=== PATIENT | female | born 1945 | race Caucasian/White ===

== ENCOUNTER 2016-11-11 10:20 | Emergency (ER) | payer MEDICARE, OTHER ==
[2016-11-11] MEDS ORDERED: ALBUTEROL NEB 2.5 MG/3 ML INH STA (10:50)
[2016-11-11] MEDS ORDERED: ALBUTEROL NEB 2.5 MG/3 ML INH ONE (11:11)
== END 2016-11-11 12:59 | disposition home or self-care (01) ==
DX: J40 Bronchitis, not specified as acute or chronic (principal); I10 Essential (primary) hypertension
CPT/HCPCS: 71020; 94640; 99283; J7613

== ENCOUNTER 2017-01-26 20:51 | Outpatient (CLI) | payer MEDICARE, OTHER | END 2017-01-26 20:52 | disposition critical access hospital (66) | DX: R06.02 Shortness of breath (principal); R06.2 Wheezing | CPT/HCPCS: A0425; A0427 ==

== ENCOUNTER 2017-01-26 21:14 | Inpatient (IN) | payer MEDICARE, OTHER ==
[2017-01-26] MEDS ORDERED: SODIUM CHLORIDE 0.9% 1,000 ML IV ONE (21:25)
[2017-01-26] MEDS ORDERED: ALBUTEROL NEB 2.5 MG/3 ML INH STA (21:27)
[2017-01-26] MEDS ORDERED: ALBUTEROL NEB 2.5 MG/3 ML INH ONE (21:31)
[2017-01-26] MEDS ORDERED: ASPIRIN CHEW 81 MG TABLET PO STA (23:00)
[2017-01-26] MEDS ORDERED: ASPIRIN CHEW 81 MG TABLET ONE (23:04)
[2017-01-26] MEDS ORDERED: HYDROcod/ACETAM 5/325 MG TABLET PO PRN (23:29)
[2017-01-26] MEDS ORDERED: SODIUM CHLORIDE FLUSH 0.9% 10 ML SYRINGE IVP PRN (23:29)
[2017-01-26] MEDS ORDERED: ONDANSETRON ODT 4 MG TABLET TL PRN (23:29)
[2017-01-26] MEDS ORDERED: ONDANSETRON 4 MG/2 ML VIAL IVP PRN (23:29)
[2017-01-27] MEDS: ACETAMINOPHEN 325 MG TABLET PO PRN ×2 (04:06→10:32)
[2017-01-27] MEDS ORDERED: SODIUM CHLORIDE FLUSH 0.9% 10 ML SYRINGE IVP SCH (06:00)
[2017-01-27] MEDS ORDERED: POTASSIUM CHLORIDE 20 MEQ TABLET PO SCH (08:00)
[2017-01-27] MEDS ORDERED: POLYETHYLENE GLYCOL 3350 17 GM PACKET PO SCH (09:00)
[2017-01-27] MEDS ORDERED: ENOXAPARIN 80 MG/0.8 ML SYRINGE SUBQ SCH (09:00)
[2017-01-27] MEDS ORDERED: SPIRONOLACTONE 25 MG TABLET PO SCH ×2 (09:00→11:00)
[2017-01-27] MEDS ORDERED: PARoxetine 10 MG TABLET PO SCH (09:00)
[2017-01-27] MEDS ORDERED: METOPROLOL TARTRATE 50 MG TABLET PO SCH ×2 (09:00→11:00)
[2017-01-27] MEDS ORDERED: ENOXAPARIN 100 MG/ML SYRINGE SUBQ SCH ×2 (10:00→11:00)
[2017-01-27] MEDS ORDERED: ASPIRIN CHEW 81 MG TABLET PO SCH (12:00)
[2017-01-27] MEDS ORDERED: NITROGLYCERIN SL 0.4 MG TABLET SL PRN (13:48)
== END 2017-01-27 15:10 | disposition short-term general hospital (02) | DRG 282 ==
DX: I21.4 Non-ST elevation (NSTEMI) myocardial infarction (principal); R07.9 Chest pain, unspecified; R06.02 Shortness of breath; I10 Essential (primary) hypertension; Z90.49 Acquired absence of other specified parts of digestive tract; R06.00 Dyspnea, unspecified; I12.9 Hypertensive chronic kidney disease with stage 1 through stage 4 chronic kidney disease, or unspecified chronic kidney disease; N18.3 Chronic kidney disease, stage 3 (moderate); Z96.653 Presence of artificial knee joint, bilateral; Z82.49 Family history of ischemic heart disease and other diseases of the circulatory system; E66.9 Obesity, unspecified; Z68.36 Body mass index [BMI] 36.0-36.9, adult; F32.9 Major depressive disorder, single episode, unspecified

== ENCOUNTER 2017-01-27 15:11 | Outpatient (CLI) | payer MEDICARE, OTHER | END 2017-01-27 15:12 | disposition short-term general hospital (02) | DX: I24.9 Acute ischemic heart disease, unspecified (principal) | CPT/HCPCS: A0425; A0426 ==

== ENCOUNTER 2017-08-22 08:32 | Outpatient (CLI) | payer MEDICARE, OTHER ==
[2017-08-22 17:53] LABS: EOSINOPHILS % (AUTO) 1.9 %; HCT - HEMATOCRIT 43.7 % (37.0-47.0); HGB - HEMOGLOBIN 14.6 g/dL (12.0-16.0); MEAN CORPUSCULAR HEMOGLOBIN 32.8 pg (27.0-31.0); MEAN CORPUSCULAR HGB CONC 33.3 g/dL (32.0-36.0); MEAN CORPUSCULAR VOLUME 98.2 fL (81.0-99.0); MEAN PLATELET VOLUME 7.4 fL (7.9-10.8); MONOCYTES % (AUTO) 6.9 %; NEUTROPHILS % (AUTO) 47.2 %; RED BLOOD COUNT 4.45 10^6/uL (4.20-5.40); RED CELL DISTRIBUTION WIDTH 14.1 % (12.0-15.0); UNCORRECTED WHITE BLOOD COUNT 5.9 x10^3/uL; WHITE BLOOD COUNT 5.9 x10^3/uL (4.8-10.8)
[2017-08-22 17:54] LABS: BILIRUBIN,URINE NEGATIVE (NEGATIVE)
[2017-08-22 18:01] LABS: BAND NEUTROPHILS % (MANUAL) 0 %
[2017-08-22 18:17] LABS: UR CULTURE IF IND INDICATED
[2017-08-22 18:19] LABS: ALBUMIN/GLOBULIN RATIO 1.1 (1.0-2.2); BILIRUBIN,TOTAL 0.8 mg/dL (0.2-1.0); BUN - BLOOD UREA NITROGEN 19 mg/dL (6-20); CALCIUM 8.6 mg/dL (8.5-10.3); CARBON DIOXIDE - CO2 20 mmol/L (21-32); CHLORIDE 110 mmol/L (101-111); CHOLESTEROL 187 mg/dL; CREATININE 1.1 mg/dL (0.4-1.0); GFR - MDRD 49 (>89); GLUCOSE 88 mg/dL (70-100); HDL CHOLESTEROL 47 mg/dL; LDL/HDL RATIO 2.4 (<4.4); POTASSIUM 4.1 mmol/L (3.5-5.0); SODIUM 136 mmol/L (135-145); TRIGLYCERIDES 123 mg/dL; VLDL CHOLESTEROL 25 mg/dL
[2017-08-22 18:27] LABS: EOSINOPHILS % (MANUAL) 2 %; LYMPHOCYTES % (MANUAL) 38 %; NEUTROPHILS % (MANUAL) 49 %; NP AUTO DIFFERENTIAL? YES; NP MAN DIFFERENTIAL? NO; PLATELET ESTIMATE, MANUAL NORMAL (130-450,000) (NORMAL); PLATELET MORPHOLOGY NORMAL APPEARANCE (NORMAL); TOTAL CELLS COUNTED 100
== END 2017-08-22 08:33 | disposition home or self-care (01) ==
LOC: LAB.F 08:32
PROVIDERS: ATTEND Internal Medicine
DX: I10 Essential (primary) hypertension (principal)
CPT/HCPCS: 36415; 80053; 80061; 81001; 84443; 85025; 87086

== ENCOUNTER 2019-07-21 12:53 | Emergency (ER) | payer MEDICARE, OTHER ==
[2019-07-21] MEDS ORDERED: BENZONATATE 100 MG CAPSULE PO STA (13:12)
[2019-07-21] MEDS ORDERED: predniSONE 20 MG TABLET PO STA (13:12)
[2019-07-21] MEDS ORDERED: IPRATROPIUM/ALBUTEROL 3 ML NEB INH STA (13:12)
[2019-07-21] MEDS ORDERED: DOXYCYCLINE 100 MG TABLET PO STA (13:12)
--- NOTE | 2019-07-21 13:15 | ED Physician Documentation ---
PD HPI URI - Stated complaint Stated Complaint: COLD - Chief complaint Chief Complaint: Resp - History obtained from History obtained from: Patient - History of Present Illness Timing - onset: Other (73-year-old woman with persistent asthma presents with a week's worth of cough productive of yellow sputum, slight increase in shortness of breath. No runny nose or sore throat. No fevers or chills. She is been coughing a lot and needs something for that.) Review of Systems Constitutional: denies: Fever, Chills Ears: denies: Ear pain Nose: denies: Rhinorrhea / runny nose, Congestion, Sinus pressure / pain Throat: denies: Sore throat Cardiac: denies: Chest pain / pressure PD PAST MEDICAL HISTORY - Past Medical History Cardiovascular: Hypertension Respiratory: None : None HEENT: None Psych: Depression Musculoskeletal: Osteoarthritis Derm: None - Past Surgical History Past Surgical History: Yes General: Cholecystectomy, Appendectomy, Bowel surgery Ortho: Knee replacement, Rotator cuff repair, Other HEENT: Tonsil/Adenoidectomy - Present Medications Home Medications: Ambulatory Orders Medication Instructions Recorded Confirmed PARoxetine [Paxil] 10 mg PO DAILY 11/11/16 01/26/17 Spironolactone 50 mg PO DAILY 11/11/16 01/27/17 Metoprolol Succinate [Toprol Xl] 50 mg PO DAILY 01/27/17 01/27/17 Benzonatate [Tessalon Perle] 100 - 200 mg PO TID PRN #30 capsule 07/21/19 Doxycycline Hyclate 100 mg PO BID #14 capsule 07/21/19 predniSONE [Deltasone] 60 mg PO DAILY 5 Days #15 tablet 07/21/19 - Allergies Allergies/Adverse Reactions: Allergies Allergy/AdvReac Type Severity Reaction Status Date / Time No Known Drug Allergies Allergy Verified 07/21/19 12:58 - Social History Does the pt smoke?: No Smoking Status: Never smoker Does the pt drink ETOH?: No Does the pt have substance abuse?: No - Immunizations Immunizations are current?: Yes PD ED PE NORMAL - Vitals Vital signs reviewed: Yes - General General: Alert and oriented X 3, No acute distress - HEENT HEENT: Ears normal, Pharynx benign - Neck Neck: Supple, no meningeal sign, No bony TTP - Cardiac Cardiac: RRR, No murmur - Respiratory Respiratory: Other (Nonlabored breathing, speaking in full sentences, rhonchorous and wheezy throughout with good air movement.) - Abdomen Abdomen: Non tender - Extremities Extremities: No edema, No calf tenderness / cord - Neuro Neuro: Alert and oriented X 3, Normal speech Results - Vitals Vitals: Vital Signs - 24 hr 07/21/19 12:56 Temperature 36.1 C L Heart Rate 64 Respiratory 20 Rate Blood Pressure 128/82 H O2 Saturation 96 Oxygen O2 Source Room air PD MEDICAL DECISION MAKING - ED course ED course: A 73-year-old woman who presents with an exacerbation of her asthma due to bronchitis and she was treated with steroids and antibiotics and Tessalon. Departure - Departure Disposition: 01 Home, Self Care Clinical Impression: Bronchitis Asthma Qualifiers: Asthma severity: moderate Asthma persistence: persistent Asthma complication type: with acute exacerbation Qualified Code(s): J45.41 - Moderate persistent asthma with (acute) exacerbation Condition: Good Record reviewed to determine appropriate education?: Yes Instructions: ED Bronchitis Asthmatic Prescriptions: Benzonatate [Tessalon Perle] 100 - 200 mg PO TID PRN #30 capsule PRN Reason: Cough Doxycycline Hyclate 100 mg PO BID #14 capsule predniSONE [Deltasone] 60 mg PO DAILY 5 Days #15 tablet Comments: Call your doctor to arrange a follow-up appointment, make the next available appointment. In the interim, return anytime if worse or if new symptoms develop.
[2019-07-21 13:55] VITALS: BP 118/75
== END 2019-07-21 13:58 | disposition home or self-care (01) ==
LOC: ED 12:53
DX: J45.41 Moderate persistent asthma with (acute) exacerbation (principal); I10 Essential (primary) hypertension
CPT/HCPCS: 94640; 99283; A9270; J7512

== ENCOUNTER 2021-11-13 08:00 | Outpatient (CLI) | payer MEDICARE, OTHER ==
--- NOTE | 2021-11-13 17:49 | XRAY Report ---
PROCEDURE: Chest 2 View X-Ray INDICATIONS: Cough TECHNIQUE: 2 view(s) of the chest. COMPARISON: 01/26/2017 FINDINGS: Surgical changes and devices: None. Lungs and pleura: No pleural effusions or pneumothorax. Lungs are clear. Mediastinum: Mediastinal contours are normal. Heart size is normal. Small hiatal hernia. Bones and chest wall: No suspicious bony abnormalities. Soft tissues appear unremarkable. IMPRESSION: No acute cardiopulmonary process demonstrated radiographically. Reviewed by: Jalen Scott MD on 11/13/2021 4:48 PM [facility] Approved by: Jalen Scott MD on 11/13/2021 4:48 PM [facility] Station ID: [id number]
== END 2021-11-13 23:59 ==
LOC: DI.S 08:00
PROVIDERS: ATTEND Physician Assistant
DX: R05.9 Cough, unspecified (principal); R79.81 Abnormal blood-gas level; U07.1 COVID-19
CPT/HCPCS: 71046; U0004

== ENCOUNTER 2022-04-19 13:53 | Outpatient (CLI) | payer MEDICARE, OTHER ==
[2022-04-19 20:25] LABS: BASOPHILS # (AUTO) 0.1 10^3/uL (0.0-0.1); BASOPHILS % (AUTO) 0.9 %; EOSINOPHILS % (AUTO) 0.7 %; HCT - HEMATOCRIT 38.3 % (37.0-47.0); HGB - HEMOGLOBIN 12.1 g/dL (12.0-16.0); LYMPHOCYTES # (AUTO) 1.4 10^3/uL (1.5-3.5); LYMPHOCYTES % (AUTO) 25.3 %; MEAN CORPUSCULAR HEMOGLOBIN 31.8 pg (27.0-31.0); MEAN CORPUSCULAR HGB CONC 31.6 g/dL (32.0-36.0); MEAN CORPUSCULAR VOLUME 100.5 fL (81.0-99.0); MEAN PLATELET VOLUME 9.3 fL (7.9-10.8); MONOCYTES # (AUTO) 0.4 10^3/uL (0.0-1.0); MONOCYTES % (AUTO) 7.5 %; NEUTROPHILS # (AUTO) 3.6 10^3/uL (1.5-6.6); NEUTROPHILS % (AUTO) 65.4 %; PLT - PLATELET COUNT 191 10^3/uL (130-450); RED BLOOD COUNT 3.81 10^6/uL (4.20-5.40); RED CELL DISTRIBUTION WIDTH 13.3 % (12.0-15.0); WHITE BLOOD COUNT 5.5 x10^3/uL (4.8-10.8)
[2022-04-19 20:54] LABS: ALBUMIN 3.5 g/dL (3.2-5.5); ALBUMIN/GLOBULIN RATIO 1.3 (1.0-2.2); BILIRUBIN,TOTAL 0.6 mg/dL (0.2-1.0); CALCIUM 8.5 mg/dL (8.5-10.3); PHOSPHORUS 3.9 mg/dL (2.5-4.6); TOTAL PROTEIN 6.1 g/dL (6.7-8.2); URIC ACID 5.4 mg/dL (2.6-7.2)
[2022-04-19 21:24] LABS: CHLORIDE,URINE RANDOM 85 mmol/L; CREATININE,URINE 31.9 mg/dL; POTASSIUM,URINE 12.6 mmol/L
[2022-04-19 21:29] LABS: TOTAL PROTEIN,URINE TIMED < 6 mg/dL
== END 2022-04-19 13:54 | disposition home or self-care (01) ==
LOC: LAB.S 13:53
PROVIDERS: ATTEND Internal Medicine Nephrology
DX: M05.79 Rheumatoid arthritis with rheumatoid factor of multiple sites without organ or systems involvement (principal); I12.9 Hypertensive chronic kidney disease with stage 1 through stage 4 chronic kidney disease, or unspecified chronic kidney disease; N18.30 Chronic kidney disease, stage 3 unspecified; E87.2 Acidosis; Z79.899 Other long term (current) drug therapy
CPT/HCPCS: 36415; 80053; 82436; 82570; 84100; 84133; 84156; 84300; 84550; 85025; 85651; 86140

== ENCOUNTER 2023-01-25 16:38 | Emergency (ER) | payer MEDICARE, OTHER ==
[2023-01-25 17:30] LABS: GLUCOSE, URINE (UA) NEGATIVE (NEGATIVE); KETONES,URINE (UA) TRACE mg/dL (NEGATIVE); LEUKOCYTE ESTERASE, URINE SMALL (NEGATIVE); NITRITE,URINE POSITIVE (NEGATIVE); OCCULT BLOOD,URINE LARGE (NEGATIVE); PH,URINE 6.5 PH (5.0-7.5); PROTEIN,URINE >=300 mg/dL (NEGATIVE); UROBILINOGEN,URINE 1 (NORMAL) E.U./dL (NORMAL)
[2023-01-25 17:34] LABS: BILIRUBIN,URINE COLOR INTERFERENCE (NEGATIVE); CLARITY,URINE TURBID (CLEAR)
[2023-01-25 17:35] LABS: BACTERIA,URINE Moderate /HPF (None Seen); RBC,URINE TNTC /HPF (0-5); SQUAMOUS EPITHELIAL CELL,UR RARE Squamous (<= Few)
[2023-01-25] MEDS ORDERED: levoFLOXacin 250 MG TABLET PO STA (17:51)
--- NOTE | 2023-01-25 17:53 | ED Physician Documentation ---
History of Present Illness - Stated complaint Stated Complaint: FEMALE - Chief complaint Chief Complaint: General - History obtained from History obtained from: Patient - Additonal information Additional information: 77-year-old woman with history of asthma, chronic kidney disease and rheumatism presents with a few weeks worth of intermittent hematuria worse over the last couple of days. No associated suprapubic pain, dysuria or fevers. PD PAST MEDICAL HISTORY - Past Medical History Cardiovascular: Hypertension Respiratory: None : None HEENT: None Psych: Depression Musculoskeletal: Osteoarthritis Derm: None - Past Surgical History Past Surgical History: Yes General: Cholecystectomy, Appendectomy, Bowel surgery Ortho: Knee replacement, Rotator cuff repair, Other HEENT: Tonsil/Adenoidectomy - Present Medications Home Medications: Ambulatory Orders Medication Instructions Recorded Confirmed PARoxetine [Paxil] 10 mg PO DAILY 11/11/16 01/26/17 Spironolactone 50 mg PO DAILY 11/11/16 01/27/17 Metoprolol Succinate [Toprol Xl] 50 mg PO DAILY 01/27/17 01/27/17 Benzonatate [Tessalon Perle] 100 - 200 mg PO TID PRN #30 capsule 07/21/19 Doxycycline Hyclate 100 mg PO BID #14 capsule 07/21/19 predniSONE [Deltasone] 60 mg PO DAILY 5 Days #15 tablet 07/21/19 levoFLOXacin [Levaquin] 250 mg PO DAILY #4 tablet 01/25/23 - Allergies Allergies/Adverse Reactions: Allergies Allergy/AdvReac Type Severity Reaction Status Date / Time capsaicin Allergy Unknown Verified 01/25/23 16:57 [From Salonpas (capsaicin-menthol)] menthol Allergy Unknown Verified 01/25/23 16:57 [From Salonpas (capsaicin-menthol)] - Social History Does the pt smoke?: No Smoking Status: Never smoker Does the pt drink ETOH?: No Does the pt have substance abuse?: No - Immunizations Immunizations are current?: Yes PD ED PE NORMAL - Vitals Vital signs reviewed: Yes - General General: Alert and oriented X 3, No acute distress - Abdomen Abdomen: Normal bowel sounds, Soft, Non tender - Back Back: No CVA TTP - Neuro Neuro: Alert and oriented X 3, Normal speech Results - Vitals Vitals: Vital Signs - 24 hr 01/25/23 16:49 Temperature 36.6 C Heart Rate 88 Respiratory 22 Rate Blood Pressure 159/97 H O2 Saturation 94 Oxygen O2 Source Room air - Labs Labs: Laboratory Tests 01/25/23 17:08 Urine Color RED/BLOODY Urine Clarity TURBID Urine pH 6.5 Ur Specific [place] 1.025 Urine Protein >=300 H Urine Glucose (UA) NEGATIVE Urine Ketones TRACE Urine Occult Blood LARGE H Urine Nitrite POSITIVE H Urine Bilirubin COLOR INTERFERENCE Urine Urobilinogen 1 (NORMAL) Ur Leukocyte Esterase SMALL H Urine RBC TNTC H Urine WBC 6-10 H Ur Squamous Epith Cells RARE Squamous Urine Bacteria Moderate H Ur Microscopic Review INDICATED Urine Culture Comments INDICATED PD Medical Decision Making - ED course ED course: 77-year-old woman presents with hematuria, the urine looks like a cystitis. I offered CT scanning and labs which she declined, but in lieu of that she understands the need for repeat urinalysis after an appropriate time on antibiotics to ensure clearance of the hematuria to rule out other etiologies. Departure - Departure Disposition: 01 Home, Self Care Clinical Impression: Cystitis Condition: Good Record reviewed to determine appropriate education?: Yes Instructions: ED UTI Cystitis Female Prescriptions: levoFLOXacin [Levaquin] 250 mg PO DAILY #4 tablet Comments: You were seen today for blood in the urine and it looks like you have a bladder infection based on positive nitrite and bacteria in the urine. As discussed, at the minimum you need a repeat urinalysis in a week or 2 to make sure that the blood is gone. You can follow-up with your primary care physician for this. Return for new or worsening symptoms. We will culture your urine, the results should be done in 48-72 hours. If an antibiotic change is necessary we will call you. Return if worse in the meantime, especially if you develop increasing flank pain, fevers, or cannot keep down the medication.
[2023-01-25 18:02] VITALS: BP 144/80
== END 2023-01-25 18:06 | disposition home or self-care (01) ==
LOC: ED 16:38
DX: N30.91 Cystitis, unspecified with hematuria (principal); I10 Essential (primary) hypertension
CPT/HCPCS: 81001; 87086; 87181; 99283; A9270; 81003

== ENCOUNTER 2023-05-18 12:40 | Outpatient (CLI) | payer MEDICARE, OTHER ==
[~2023-05-18 12:40] MED LIST: iohexoL-300 100 ML VIAL ONE
[2023-05-18] MEDS ORDERED: DIATR MEGLU/DIATRIZOATE SODIUM 120 ML BOTTLE ONE (12:44)
[2023-05-18 13:05] LABS: CREATININE 1.7 mg/dL (0.4-1.0)
[2023-05-18] MEDS ORDERED: iohexoL-300 100 ML VIAL ONE (14:27)
[2023-05-18] MEDS ORDERED: iohexoL-300 100 ML VIAL IVP ONE (16:14)
[2023-05-18] MEDS ORDERED: DIATRIZOATE MEGLU/DIATRIZO SOD 30 ML BOTTLE PO ONE (16:17)
--- NOTE | 2023-05-19 10:51 | CT Report ---
PROCEDURE: ABDOMEN/PELVIS W INDICATIONS: BLADDER CA CONTRAST: 100ml omni 300 TECHNIQUE: After the administration of oral and intravenous contrast, 5 mm thick sections acquired from the diap hragms to the symphysis. 5 mm thick coronal and sagittal reformats were acquired. For radiation dos e reduction, the following was used: automated exposure control, adjustment of mA and/or kV accordin g to patient size. Note: There was multiple injection malfunctions, resulting in small amount of int ravenous contrast being administered. COMPARISON: None. FINDINGS: Image quality: Excellent. Lung bases and heart: Moderate hiatal hernia. Mosaic attenuation of the lung bases. Liver: No solid mass. Gallbladder and biliary tree: Surgically absent. No biliary dilation, accounting for post-cholecystec juani state. Spleen: No splenomegaly. Pancreas: No pancreatic ductal dilation. Adrenals: No adrenal nodule. Kidneys and ureters: Moderate right-sided hydronephroureter. Bowel and peritoneum: No bowel distension. No pathologic free fluid. Diverticulosis without evidence of diverticulitis. Lymph nodes: No central or retroperitoneal adenopathy. Vessels: No infrarenal aortic aneurysm. PELVIS Reproductive organs: Pelvic swelling present. Bladder: Right posterior bladder wall mass measuring 7.2 x 4.8 cm. There is no fat plane between the mass and the uterus, and there is definite extension beyond the bladder wall. There is soft tissue co ntact with a short segment of sigmoid colonic wall (series 11, image 30). Pelvic lymph nodes: No pelvic adenopathy by size criteria. Bones: No aggressive osseous abnormality. Other: No significant ventral or inguinal hernia. IMPRESSION: Right posterior bladder wall mass measuring 7.2 x 4.8 cm, with extension beyond the bladder wall, lik mahnaz local invasion of the uterus and with moderate right-sided hydronephrosis. No pelvic or retroperitoneal adenopathy. Mosaic attenuation of the lungs, suggestive of diffuse air trapping in the setting of small airways d isease. Reviewed by: Francisco Serna on 05/19/2023 10:50 AM PDT Approved by: Francisco Serna on 05/19/2023 10:50 AM PDT Station ID: [id number]
== END 2023-05-18 12:41 | disposition home or self-care (01) ==
LOC: LAB 12:40
PROVIDERS: ATTEND Urology
DX: C67.8 Malignant neoplasm of overlapping sites of bladder (principal); N18.31 Chronic kidney disease, stage 3a
CPT/HCPCS: 36415; 74177; 82565; Q9963; Q9967

== ENCOUNTER 2023-05-27 10:55 | Outpatient (CLI) | payer MEDICARE, OTHER ==
[2023-05-27 13:41] LABS: GLUCOSE, URINE (UA) NEGATIVE (NEGATIVE); KETONES,URINE (UA) NEGATIVE (NEGATIVE); LEUKOCYTE ESTERASE, URINE TRACE (NEGATIVE); NITRITE,URINE POSITIVE (NEGATIVE); OCCULT BLOOD,URINE LARGE (NEGATIVE); PH,URINE 6.5 PH (5.0-7.5); PROTEIN,URINE >=300 mg/dL (NEGATIVE); UROBILINOGEN,URINE 1 (NORMAL) E.U./dL (NORMAL)
[2023-05-27 14:36] LABS: CLARITY,URINE BLOODY (CLEAR)
[2023-05-27 14:38] LABS: BILIRUBIN,URINE NEGATIVE (NEGATIVE); ICTOTEST,URINE NEGATIVE
[2023-05-27 15:46] LABS: RBC,URINE TNTC /HPF (0-5); WBC,URINE 0-3 /HPF (0-5)
[2023-05-27 15:47] LABS: BACTERIA,URINE None Seen /HPF (None Seen); SQUAMOUS EPITHELIAL CELL,UR NONE SEEN (<= Few)
== END 2023-05-27 10:56 | disposition home or self-care (01) ==
LOC: LAB 10:55
PROVIDERS: ATTEND Nurse Practitioner Adult Health
DX: C67.8 Malignant neoplasm of overlapping sites of bladder (principal)
CPT/HCPCS: 81001; 87086

== ENCOUNTER 2023-06-02 22:54 | Outpatient (CLI) | payer MEDICARE, OTHER | END 2023-06-02 23:59 | disposition short-term general hospital (02) | LOC: EMS 22:54 | DX: G89.3 Neoplasm related pain (acute) (chronic) (principal); R31.9 Hematuria, unspecified; R39.89 Other symptoms and signs involving the genitourinary system | CPT/HCPCS: A0425; A0427; A0888 ==

== ENCOUNTER 2023-06-16 16:05 | Outpatient (CLI) | payer MEDICARE, OTHER ==
[2023-06-16 16:19] LABS: BASOPHILS # (AUTO) 0.1 10^3/uL (0.0-0.1); BASOPHILS % (AUTO) 0.7 %; EOSINOPHILS # (AUTO) 0.2 10^3/uL (0.0-0.7); EOSINOPHILS % (AUTO) 1.3 %; HCT - HEMATOCRIT 29.7 % (37.0-47.0); HGB - HEMOGLOBIN 9.2 g/dL (12.0-16.0); LYMPHOCYTES # (AUTO) 3.8 10^3/uL (1.5-3.5); LYMPHOCYTES % (AUTO) 23.8 %; MEAN CORPUSCULAR HEMOGLOBIN 28.5 pg (27.0-31.0); MEAN PLATELET VOLUME 8.5 fL (7.9-10.8); MONOCYTES # (AUTO) 1.1 10^3/uL (0.0-1.0); MONOCYTES % (AUTO) 6.8 %; NEUTROPHILS # (AUTO) 10.7 10^3/uL (1.5-6.6); NEUTROPHILS % (AUTO) 66.8 %; PLT - PLATELET COUNT 444 10^3/uL (130-450); RED BLOOD COUNT 3.23 10^6/uL (4.20-5.40); RED CELL DISTRIBUTION WIDTH 16.8 % (12.0-15.0)
== END 2023-06-16 16:06 | disposition home or self-care (01) ==
LOC: LAB 16:05
PROVIDERS: ATTEND Urology
DX: C67.8 Malignant neoplasm of overlapping sites of bladder (principal)
CPT/HCPCS: 36415; 85025

== ENCOUNTER 2023-06-18 12:04 | Outpatient (CLI) | payer MEDICARE, OTHER | END 2023-06-18 12:05 | disposition critical access hospital (66) | LOC: EMS 12:04 | DX: R53.1 Weakness (principal) | CPT/HCPCS: A0425; A0429 ==

== ENCOUNTER 2023-06-18 12:28 | Emergency (ER) | payer MEDICARE, OTHER ==
--- NOTE | 2023-06-18 12:57 | ED Physician Documentation ---
History of Present Illness - Stated complaint Stated Complaint: WEAKNESS - Chief complaint Chief Complaint: General - History obtained from History obtained from: Patient, Family, EMS - History of Present Illness Timing: Today Pain level max: 0 Pain level now: 0 - Additonal information Additional information: 77-year-old female presents to the emergency department for generalized weakness. This been ongoing for the past several days. She states that she has a history of bladder cancer with recurrent hematuria and large blood loss from this. She is scheduled for surgery at the [facility] on Friday with Dr. Wilkes, urology. She states that 2 weeks ago her hematocrit was down to 14 and she received 5 units of blood. She was at the [facility] until June 08. She states that she had blood work 2 days ago which showed that her hemoglobin was back down to 9. She states increasing weakness talk to her urologist who told her to come in for evaluation and they would coordinate care with us. No fevers. No chills. She is still having hematuria with clots. She is not currently on chemotherapy. Review of Systems Constitutional: denies: Fever, Chills Nose: denies: Rhinorrhea / runny nose, Congestion GI: denies: Vomiting, Diarrhea Musculoskeletal: denies: Neck pain, Back pain Neurologic: reports: Generalized weakness. denies: Headache PD PAST MEDICAL HISTORY - Past Medical History Cardiovascular: Hypertension Respiratory: None : None HEENT: None Psych: Depression Musculoskeletal: Osteoarthritis Derm: None - Past Surgical History Past Surgical History: Yes General: Cholecystectomy, Appendectomy, Bowel surgery Ortho: Knee replacement, Rotator cuff repair, Other HEENT: Tonsil/Adenoidectomy - Present Medications Home Medications: Ambulatory Orders Medication Instructions Recorded Confirmed PARoxetine [Paxil] 10 mg PO DAILY 11/11/16 01/26/17 Spironolactone 50 mg PO DAILY 11/11/16 01/27/17 Metoprolol Succinate [Toprol Xl] 50 mg PO DAILY 01/27/17 01/27/17 Benzonatate [Tessalon Perle] 100 - 200 mg PO TID PRN #30 capsule 07/21/19 Doxycycline Hyclate 100 mg PO BID #14 capsule 07/21/19 predniSONE [Deltasone] 60 mg PO DAILY 5 Days #15 tablet 07/21/19 levoFLOXacin [Levaquin] 250 mg PO DAILY #4 tablet 01/25/23 - Allergies Allergies/Adverse Reactions: Allergies Allergy/AdvReac Type Severity Reaction Status Date / Time capsaicin Allergy Unknown Verified 06/18/23 12:42 [From Salonpas (capsaicin-menthol)] menthol Allergy Unknown Verified 06/18/23 12:42 [From Salonpas (capsaicin-menthol)] - Social History Does the pt smoke?: No Smoking Status: Never smoker Does the pt drink ETOH?: No Does the pt have substance abuse?: No - Immunizations Immunizations are current?: Yes - POLST Patient has POLST: No PD ED PE NORMAL - Vitals Vital signs reviewed: Yes - General General: Alert and oriented X 3, No acute distress - HEENT HEENT: PERRL, Moist mucous membranes - Neck Neck: Supple, no meningeal sign - Cardiac Cardiac: RRR, Strong equal pulses - Respiratory Respiratory: No respiratory distress, Clear bilaterally - Abdomen Abdomen: Soft, Non tender, Non distended - Back Back: No spinal TTP - Derm Derm: Warm and dry, No rash - Extremities Extremities: No edema, No calf tenderness / cord - Neuro Neuro: Alert and oriented X 3 - Psych Psych: Normal mood, Normal affect Results - Vitals Vitals: Vital Signs - 24 hr 06/18/23 06/18/23 12:37 12:42 Temperature 36.7 C Heart Rate 87 88 Respiratory 18 15 Rate Blood Pressure 110/66 O2 Saturation 100 99 Oxygen O2 Source Room air - Labs Labs: Laboratory Tests 06/18/23 06/18/23 06/18/23 13:12 13:12 13:12 WBC 13.6 H RBC 2.71 L Hgb 7.5 L Hct 25.0 L MCV 92.3 MCH 27.7 MCHC 30.0 L RDW 17.0 H Plt Count 349 MPV 8.7 Neut # (Auto) 11.1 H Lymph # (Auto) 1.6 [place] # (Auto) 0.7 Eos # (Auto) 0.1 Baso # (Auto) 0.1 Absolute Nucleated RBC 0.00 Nucleated RBC % 0.0 PT 12.5 INR 1.1 APTT 29.9 Sodium 136 Potassium 2.8 L Chloride 101 Carbon Dioxide 27 Anion Gap 8.0 BUN 30 H Creatinine 1.4 H Estimated GFR (MDRD) 37 L Glucose 120 H Calcium 10.8 H Total Bilirubin 0.4 AST 11 ALT 5 L Alkaline Phosphatase 66 Total Protein 6.0 L Albumin 2.7 L Globulin 3.3 Albumin/Globulin Ratio 0.8 L Lipase 28 Urine Color Urine Clarity Urine pH Ur Specific [place] Urine Protein Urine Glucose (UA) Urine Ketones Urine Occult Blood Urine Nitrite Urine Bilirubin Urine Urobilinogen Ur Leukocyte Esterase Urine RBC Urine WBC Ur Squamous Epith Cells Urine Bacteria Ur Microscopic Review Urine Culture Comments Blood Type Blood Type Recheck Antibody Screen 06/18/23 06/18/23 06/18/23 13:12 13:46 14:03 WBC RBC Hgb Hct MCV MCH MCHC RDW Plt Count MPV Neut # (Auto) Lymph # (Auto) [place] # (Auto) Eos # (Auto) Baso # (Auto) Absolute Nucleated RBC Nucleated RBC % PT INR APTT Sodium Potassium Chloride Carbon Dioxide Anion Gap BUN Creatinine Estimated GFR (MDRD) Glucose Calcium Total Bilirubin AST ALT Alkaline Phosphatase Total Protein Albumin Globulin Albumin/Globulin Ratio Lipase Urine Color BROWN Urine Clarity TURBID Urine pH Ur Specific [place] Urine Protein Urine Glucose (UA) Urine Ketones Urine Occult Blood LARGE H Urine Nitrite POSITIVE H Urine Bilirubin NEGATIVE Urine Urobilinogen Ur Leukocyte Esterase LARGE H Urine RBC TNTC H Urine WBC 11-25 H Ur Squamous Epith Cells NONE SEEN Urine Bacteria Moderate H Ur Microscopic Review INDICATED Urine Culture Comments INDICATED Blood Type A POSITIVE Blood Type Recheck A POSITIVE Antibody Screen NEGATIVE PD Medical Decision Making - ED course Complexity details: reviewed results, re-evaluated patient, considered differential, d/w patient ED course: Her CBC shows an elevated white blood cell count at 13,600, down from 16,000 2 days ago. Hemoglobin is down from 9.2 to 7.5 over the past 2 days. Coagulation studies are normal. Potassium is low at 2.8. Creatinine is elevated at 1.4. A call was placed to her urologist, Dr. Wilkes at approximately 130. No callback received at the time of shift change. The patient will be signed out to Dr. Smith awaiting final disposition. The patient states that she is scheduled for surgery on Friday morning at the [facility]. It would be up to her urologist that he would like her transferred down there prior to that for further stabilization and care if he wants her admitted here for blood and further care. See Dr. Smith's note for final disposition. This document was made in part using voice recognition software. While efforts are made to proofread this document, sound alike and grammatical errors may occur. Patient appears to have a UTI and was given IV Rocephin. Patient was also given oral potassium, 50 mEq. Magnesium is pending at the time of signout as well. Departure - Departure Clinical Impression: Hypokalemia Anemia Qualifiers: Anemia type: unspecified type Qualified Code(s): D64.9 - Anemia, unspecified Hematuria Qualifiers: Hematuria type: unspecified type Qualified Code(s): R31.9 - Hematuria, unspecified Bladder cancer Qualifiers: Bladder location: unspecified site Qualified Code(s): C67.9 - Malignant neoplasm of bladder, unspecified Condition: Stable Forms: PCP List
[2023-06-18 13:19] LABS: BASOPHILS # (AUTO) 0.1 10^3/uL (0.0-0.1); BASOPHILS % (AUTO) 0.4 %; EOSINOPHILS # (AUTO) 0.1 10^3/uL (0.0-0.7); EOSINOPHILS % (AUTO) 0.7 %; HGB - HEMOGLOBIN 7.5 g/dL (12.0-16.0); LYMPHOCYTES # (AUTO) 1.6 10^3/uL (1.5-3.5); LYMPHOCYTES % (AUTO) 11.5 %; MEAN CORPUSCULAR HEMOGLOBIN 27.7 pg (27.0-31.0); MEAN CORPUSCULAR VOLUME 92.3 fL (81.0-99.0); MEAN PLATELET VOLUME 8.7 fL (7.9-10.8); MONOCYTES # (AUTO) 0.7 10^3/uL (0.0-1.0); MONOCYTES % (AUTO) 5.1 %; NEUTROPHILS # (AUTO) 11.1 10^3/uL (1.5-6.6); NEUTROPHILS % (AUTO) 81.6 %; PLT - PLATELET COUNT 349 10^3/uL (130-450); RED BLOOD COUNT 2.71 10^6/uL (4.20-5.40); WHITE BLOOD COUNT 13.6 x10^3/uL (4.8-10.8)
[2023-06-18 13:24] LABS: INR 1.1 (0.8-1.2); PT - PROTHROMBIN TIME 12.5 secs (9.9-12.6)
[2023-06-18 13:31] LABS: PARTIAL THROMBOPLASTIN TIME 29.9 secs (24.9-33.3)
[2023-06-18 13:34] LABS: ALBUMIN 2.7 g/dL (3.2-5.5); ALBUMIN/GLOBULIN RATIO 0.8 (1.0-2.2); BILIRUBIN,TOTAL 0.4 mg/dL (0.2-1.0); CALCIUM 10.8 mg/dL (8.5-10.3); CREATININE 1.4 mg/dL (0.4-1.0); POTASSIUM 2.8 mmol/L (3.5-5.0)
[2023-06-18 14:28] LABS: LEUKOCYTE ESTERASE, URINE LARGE (NEGATIVE); NITRITE,URINE POSITIVE (NEGATIVE); OCCULT BLOOD,URINE LARGE (NEGATIVE)
[2023-06-18 14:38] LABS: CLARITY,URINE TURBID (CLEAR)
[2023-06-18 14:42] LABS: BILIRUBIN,URINE NEGATIVE (NEGATIVE); ICTOTEST,URINE NEGATIVE
[2023-06-18 14:43] LABS: BACTERIA,URINE Moderate /HPF (None Seen); RBC,URINE TNTC /HPF (0-5); SQUAMOUS EPITHELIAL CELL,UR NONE SEEN (<= Few)
[2023-06-18] MEDS ORDERED: cefTRIAXone 1 GM VIAL IVP STA (14:49)
[2023-06-18] MEDS ORDERED: POTASSIUM BICARB 25 MEQ TABLET PO STA (14:50)
[2023-06-18 15:10] LABS: MAGNESIUM 1.8 mg/dL (1.7-2.8); PHOSPHORUS 3.2 mg/dL (2.5-4.6)
--- NOTE | 2023-06-18 15:49 | ED Physician Documentation ---
ED Addendum - Addendum Addendum: 06/18/23 15:48 Patient signed out to me by Dr. Lewis. Briefly she has bladder cancer and has been bleeding. Scheduled for major surgery on Friday. At signout we are waiting for callback from her urologist, Dr. Wilkes at the [facility]. He did call back at this time and we discussed the case, and her lab findings. He request that we transfuse her 2 units and start her on an antibiotic. He agrees with third-generation cephalosporin with review of her last urine culture on the chart here which was resistant to Cipro and Bactrim. Still plan to take her to the OR on Friday.
[2023-06-18] MEDS ORDERED: ACETAMINOPHEN 500 MG TABLET PO STA (16:42)
[2023-06-18] MEDS ORDERED: SOLIFENACIN SUCCINATE 5 MG TABLET PO STA (17:56)
[2023-06-18 22:00] VITALS: BP 112/66; O2SAT 98
--- NOTE | 2023-06-20 15:23 | ED Physician Documentation ---
ED Addendum - Addendum Addendum: 06/20/23 15:23 The urine culture came back showing Enterococcus faecalis sensitive to penicillin and amoxicillin. The patient was prescribed cefdinir. I would presume sensitivity to the cephalosporins though not specifically tested. No change in therapy needed.
== END 2023-06-18 22:13 | disposition home or self-care (01) ==
LOC: EDUNIT# → ED 12:28
DX: E87.6 Hypokalemia (principal); D64.9 Anemia, unspecified; R31.9 Hematuria, unspecified; C67.9 Malignant neoplasm of bladder, unspecified; I10 Essential (primary) hypertension
CPT/HCPCS: 36415; 80053; 81001; 83690; 83735; 84100; 85025; 85610; 85730; 86850; 86900; 86901; 86920; 87086; 96374; 99284; 99285; A9270; P9016; 81003; 87077; 87181

== ENCOUNTER 2023-08-05 13:00 | Outpatient (CLI) | payer MEDICARE, OTHER | END 2023-08-05 13:01 | disposition home or self-care (01) | LOC: LAB 13:00 | PROVIDERS: ATTEND Internal Medicine Hematology & Oncology | DX: Z53.9 Procedure and treatment not carried out, unspecified reason (principal) ==

== ENCOUNTER 2023-08-07 11:04 | Outpatient (CLI) | payer MEDICARE, OTHER ==
[2023-08-07 14:30] LABS: BASOPHILS % (AUTO) 0.6 %; EOSINOPHILS % (AUTO) 1.7 %; HCT - HEMATOCRIT 28.8 % (37.0-47.0); HGB - HEMOGLOBIN 8.8 g/dL (12.0-16.0); MEAN CORPUSCULAR HEMOGLOBIN 29.5 pg (27.0-31.0); MEAN CORPUSCULAR HGB CONC 30.6 g/dL (32.0-36.0); MEAN CORPUSCULAR VOLUME 96.6 fL (81.0-99.0); MEAN PLATELET VOLUME 8.6 fL (7.9-10.8); MONOCYTES % (AUTO) 4.6 %; NEUTROPHILS % (AUTO) 44.3 %; PLT - PLATELET COUNT 433 10^3/uL (130-450); RED BLOOD COUNT 2.98 10^6/uL (4.20-5.40); RED CELL DISTRIBUTION WIDTH 20.9 % (12.0-15.0); WHITE BLOOD COUNT 13.2 x10^3/uL (4.8-10.8)
[2023-08-07 15:07] LABS: ABNORMAL LYMPHS % (MANUAL) 0 %
[2023-08-07 15:53] LABS: BAND NEUTROPHILS % (MANUAL) 1 %; DIFFERENTIAL COMMENT MANUAL DIFFERENTIAL; LYMPHOCYTES # (MANUAL) 4.6 10^3/uL (1.5-3.5); LYMPHOCYTES % (MANUAL) 26 %; METAMYELOCYTES % (MANUAL) 1 %; MONOCYTES # (MANUAL) 0.8 10^3/uL (0.0-1.0); NEUTROPHILS # (MANUAL) 7.7 10^3/uL (1.5-6.6); PLATELET ESTIMATE, MANUAL NORMAL (130-450,000) (NORMAL); PLATELET MORPHOLOGY NORMAL APPEARANCE (NORMAL); REACTIVE LYMPHS % (MANUAL) 9 %
[2023-08-07 17:08] LABS: ALBUMIN 2.5 g/dL (3.2-5.5); ALBUMIN/GLOBULIN RATIO 0.8 (1.0-2.2); BILIRUBIN,TOTAL 0.4 mg/dL (0.2-1.0); CALCIUM 8.7 mg/dL (8.5-10.3); CREATININE 1.2 mg/dL (0.6-1.3); POTASSIUM 3.4 mmol/L (3.5-4.5); TOTAL PROTEIN 5.8 g/dL (6.4-8.9)
== END 2023-08-07 11:05 | disposition home or self-care (01) ==
LOC: LAB 11:04
PROVIDERS: ATTEND Nurse Practitioner Adult Health
DX: C67.8 Malignant neoplasm of overlapping sites of bladder (principal)
CPT/HCPCS: 36415; 80053; 82607; 85025

== ENCOUNTER 2023-08-09 12:40 | Outpatient (CLI) | payer MEDICARE, OTHER ==
--- NOTE | 2023-08-10 13:32 | Ultrasound Report ---
PROCEDURE: Retroperitoneal INDICATIONS: BLADDER CA TECHNIQUE: Real-time scanning was performed of the retroperitoneal organs, with image documentation. COMPARISON: Correlation made to CT abdomen and pelvis 05/18/2023 FINDINGS: Kidneys: Kidneys are mildly diminutive in size. Right kidney measures 0.1 cm long; left kidney tien ures 8.6 cm long. Right renal cortical thickness is 0.6 cm; left renal cortical thickness is 0.8 cm. There is a 1.1 cm exophytic hypoechoic mass arising from the midpole left kidney cortex. No increase d vascular flow. Medial cortex is mildly echogenic resulting in increased cortical medullary differen tiation. No hydronephrosis or nephrolithiasis. Bladder: The urinary bladder is surgically absent. Miscellaneous: No free abdominal fluid. IMPRESSION: 1. 1.1 cm hypoechoic mass arising from the lateral left kidney was present on the prior CT and remain s indeterminant. Differential diagnosis includes proteinaceous cyst or solid lesion, benign or malign ant. 2. Mildly diminutive and echogenic right kidney may indicate chronic medical renal disease. 3. Interval resolution of hydronephrosis seen on prior CT. Reviewed by: Tiffany Carrillo MD on 08/10/2023 1:30 PM PDT Approved by: Tiffany Carrillo MD on 08/10/2023 1:30 PM PDT Station ID: [id number]
== END 2023-08-09 12:41 | disposition home or self-care (01) ==
LOC: DI 12:40
PROVIDERS: ATTEND Nurse Practitioner Adult Health
DX: N28.89 Other specified disorders of kidney and ureter (principal); Z90.6 Acquired absence of other parts of urinary tract

== ENCOUNTER 2023-08-16 09:59 | Outpatient (CLI) | payer MEDICARE, OTHER ==
[2023-08-16] MEDS ORDERED: iohexoL-300 100 ML VIAL IVP ONE (19:24)
[2023-08-16] MEDS ORDERED: BARIUM SULFATE 1,900 ML BOTTLE RC ONE (19:25)
--- NOTE | 2023-08-17 16:04 | CT Report ---
PROCEDURE: CT chest, abdomen and pelvis with IV and oral contrast INDICATIONS: BLADDER CA CONTRAST: 100ml omni 300 TECHNIQUE: After the administration of oral and intravenous contrast, 5 mm thick sections acquired from the diap hragms to the symphysis. 5 mm thick coronal and sagittal reformats were acquired. For radiation dos e reduction, the following was used: automated exposure control, adjustment of mA and/or kV accordin g to patient size. COMPARISON: CT abdomen and pelvis on May 18, 2023 FINDINGS: Image quality: Excellent. CHEST: Thyroid: Visualized portion is unremarkable. Mediastinum: Patent central airways. Moderate-sized hiatal hernia. Lymph nodes: No enlarged axillary, mediastinal or hilar lymph nodes by size criteria. Heart: Heart size is at the upper limits of normal. No pericardial effusion. No filling defects in th e central pulmonary vasculature. Aorta is normal in caliber. No coronary vessel calcifications. Lungs: No suspicious solid pulmonary nodules. Right fissure triangular lymph node measuring 3 mm (01/01 26, ). Diffuse interlobular septal thickening and mosaic attenuation. Bilateral lower lobe compre ssive atelectasis. Pleura: Bilateral pleural effusions, left greater than right. Chest wall: Unremarkable. ABDOMEN: Liver: No solid mass. Gallbladder and biliary tree: Cholecystectomy. No intra or extra hepatic biliary ductal dilatation. Spleen: No splenomegaly. Pancreas: No pancreatic ductal dilation. Adrenals: No adrenal nodule. Kidneys and ureters: Symmetric enhancement with no hydronephrosis or nephrolithiasis bilaterally. Rig ht upper pole simple cyst. Left interpole subcentimeter isodense lesion is too small to characterize measuring 0.8 cm (12/31) and stable compared to prior CT. Bowel: Small and large bowel is normal in caliber, without obstruction. Ileal conduit in the right mi d abdomen. Small pneumoperitoneum in the pelvis ( 7-73). No pneumatosis or portal venous gas. Sig moid and colonic diverticulosis, without diverticulitis. Lymph nodes: No central or retroperitoneal adenopathy. Vessels: No infrarenal aortic aneurysm. Mild scattered abdominal aortic calcification. Patent hepatic , portal, splenic and bilateral renal veins. Proximal mesenteric vessels are patent. PELVIS Reproductive organs: Cystectomy. Bilateral ovaries are not well seen, as before. Bladder and peritoneum: Interval cystectomy. Mixed hypoattenuation right retroperitoneal collection m easuring 7.2 x 6.1 x 18 cm (ML x AP x CC) (2/44, 6/55). Two smaller hyperattenuating collections in t he pelvis measuring 2.3 x 1.3 cm and 2 x 1.7 cm (2/66). Additional hyperattenuating collection in the anterior peritoneum measuring 1.5 x 1.5 cm (2/60). Small volume pelvic free fluid. Pelvic lymph nodes: Hypoattenuating lesion/collection in the left internal iliac region measuring 2.3 x 2.2 cm (2/62). Bones no acute fractures. No aggressive appearing lytic or blastic osseous lesions. Other: No significant ventral or inguinal hernia. Mild body wall anasarca. Healing midline incision w ith no fluid collection. Benign subcentimeter calcification in the left posterior subcutaneous fat (38). IMPRESSION: 1. History of bladder cancer with interval cystectomy and ileal conduit. Large right retroperitoneal hematoma measuring 7.2 x 6.1 x 18 cm. A few additional smaller hematomas and small volume pneumoperit oneum in the right hemipelvis measuring up to 2.3 x 1.3 cm. Probable additional smaller hematoma in t he right anterior abdominal wall measuring 1.5 x 1.5 cm. Attention on follow-up. 2. Left internal iliac hypodense lesion/collection may represent an evolving fluid collection versus a lymph node. Attention on follow-up imaging. 3. No hydronephrosis bilaterally. Left interpolar subcentimeter isodense lesion is too small to tanner cterize measuring 0.8 cm and stable. Attention on follow-up. 4. Small bilateral pleural effusions, left greater than right, with mild pulmonary edema and body wal l anasarca. Mosaic attenuation may represent small vessel versus small airways disease. Reviewed by: Barrie Cadena MD on 08/17/2023 4:03 PM PDT Approved by: Barrie Cadena MD on 08/17/2023 4:03 PM PDT Station ID: [id number]
--- NOTE | 2023-08-17 16:05 | CT Report ---
PROCEDURE: CT chest, abdomen and pelvis with IV and oral contrast INDICATIONS: BLADDER CA CONTRAST: 100ml omni 300 TECHNIQUE: After the administration of oral and intravenous contrast, 5 mm thick sections acquired from the diap hragms to the symphysis. 5 mm thick coronal and sagittal reformats were acquired. For radiation dos e reduction, the following was used: automated exposure control, adjustment of mA and/or kV accordin g to patient size. COMPARISON: CT abdomen and pelvis on May 18, 2023 FINDINGS: Image quality: Excellent. CHEST: Thyroid: Visualized portion is unremarkable. Mediastinum: Patent central airways. Moderate-sized hiatal hernia. Lymph nodes: No enlarged axillary, mediastinal or hilar lymph nodes by size criteria. Heart: Heart size is at the upper limits of normal. No pericardial effusion. No filling defects in th e central pulmonary vasculature. Aorta is normal in caliber. No coronary vessel calcifications. Lungs: No suspicious solid pulmonary nodules. Right fissure triangular lymph node measuring 3 mm (01/01 26, ). Diffuse interlobular septal thickening and mosaic attenuation. Bilateral lower lobe compre ssive atelectasis. Pleura: Bilateral pleural effusions, left greater than right. Chest wall: Unremarkable. ABDOMEN: Liver: No solid mass. Gallbladder and biliary tree: Cholecystectomy. No intra or extra hepatic biliary ductal dilatation. Spleen: No splenomegaly. Pancreas: No pancreatic ductal dilation. Adrenals: No adrenal nodule. Kidneys and ureters: Symmetric enhancement with no hydronephrosis or nephrolithiasis bilaterally. Rig ht upper pole simple cyst. Left interpole subcentimeter isodense lesion is too small to characterize measuring 0.8 cm (12/31) and stable compared to prior CT. Bowel: Small and large bowel is normal in caliber, without obstruction. Ileal conduit in the right mi d abdomen. Small pneumoperitoneum in the pelvis ( 7-73). No pneumatosis or portal venous gas. Sig moid and colonic diverticulosis, without diverticulitis. Lymph nodes: No central or retroperitoneal adenopathy. Vessels: No infrarenal aortic aneurysm. Mild scattered abdominal aortic calcification. Patent hepatic , portal, splenic and bilateral renal veins. Proximal mesenteric vessels are patent. PELVIS Reproductive organs: Cystectomy. Bilateral ovaries are not well seen, as before. Bladder and peritoneum: Interval cystectomy. Mixed hypoattenuation right retroperitoneal collection m easuring 7.2 x 6.1 x 18 cm (ML x AP x CC) (2/44, 6/55). Two smaller hyperattenuating collections in t he pelvis measuring 2.3 x 1.3 cm and 2 x 1.7 cm (2/66). Additional hyperattenuating collection in the anterior peritoneum measuring 1.5 x 1.5 cm (2/60). Small volume pelvic free fluid. Pelvic lymph nodes: Hypoattenuating lesion/collection in the left internal iliac region measuring 2.3 x 2.2 cm (2/62). Bones: No acute fractures. No aggressive appearing lytic or blastic osseous lesions. Moderate multile yanet degenerative changes of the spine. Other: No significant ventral or inguinal hernia. Mild body wall anasarca. Healing midline incision w ith no fluid collection. Benign subcentimeter calcification in the left posterior subcutaneous fat (2 /38). IMPRESSION: 1. History of bladder cancer with interval cystectomy and ileal conduit. Large right retroperitoneal hematoma measuring 7.2 x 6.1 x 18 cm. A few additional smaller hematomas and small volume pneumoperit oneum in the right hemipelvis measuring up to 2.3 x 1.3 cm. Probable additional smaller hematoma in t he right anterior abdominal wall measuring 1.5 x 1.5 cm. Attention on follow-up. 2. Left internal iliac hypodense lesion/collection may represent an evolving fluid collection versus a lymph node. Attention on follow-up imaging. 3. No hydronephrosis bilaterally. Left interpolar subcentimeter isodense lesion is too small to tanner cterize measuring 0.8 cm and stable. Attention on follow-up. 4. Small bilateral pleural effusions, left greater than right, with mild pulmonary edema and body wal l anasarca. Mosaic attenuation may represent small vessel versus small airways disease. Reviewed by: Barrie Cadena MD on 08/17/2023 4:04 PM PDT Approved by: Barrie Cadena MD on 08/17/2023 4:04 PM PDT Station ID: [id number]
== END 2023-08-16 23:59 | disposition home or self-care (01) ==
LOC: DI 09:59
PROVIDERS: ATTEND Nurse Practitioner Adult Health
DX: C67.8 Malignant neoplasm of overlapping sites of bladder (principal); J90 Pleural effusion, not elsewhere classified; K68.3 Retroperitoneal hematoma; Z90.6 Acquired absence of other parts of urinary tract; J81.1 Chronic pulmonary edema
CPT/HCPCS: 71260; 74177; A9270; Q9967

== ENCOUNTER 2023-08-19 10:56 | Outpatient (CLI) | payer MEDICARE, OTHER ==
[2023-08-19 11:23] LABS: PATIENT WEIGHT,URINE 160 lbs; TOTAL VOLUME,URINE 1400 mL
[2023-08-19 11:27] LABS: CREATININE,URINE 30.3 mg/dL
== END 2023-08-19 10:57 | disposition home or self-care (01) ==
LOC: LAB 10:56
PROVIDERS: ATTEND Internal Medicine Hematology & Oncology
DX: C67.8 Malignant neoplasm of overlapping sites of bladder (principal)
CPT/HCPCS: 36415; 82575

== ENCOUNTER 2023-09-01 15:26 | Outpatient (CLI) | payer MEDICARE, OTHER | END 2023-09-01 15:27 | disposition critical access hospital (66) | LOC: EMS 15:26 | DX: R53.1 Weakness (principal); R06.02 Shortness of breath; Z74.09 Other reduced mobility | CPT/HCPCS: A0425; A0429 ==